=== PATIENT | male | born 1960 | race Caucasian/White ===

== ENCOUNTER 2021-04-16 17:52 | Inpatient (IN) ==
[2021-04-16] MEDS: NS 0.9% 1000 ml BAG 2,000 ML IV ONE ×2 (20:00→20:14)
[2021-04-16 20:22] LABS: ABS Lymphocytes 0.3 10^3/ul (1.0-4.8); Hematocrit 32 % (42-52); Hemoglobin 10.5 g/dL (14.0-18.0); Lymphocyte % 2.7 %; Mean Corpuscular HGB Conc 33 g/dL (31-36); Mean Corpuscular Hemoglobin 28 pg (27-31); Mean Corpuscular Volume 84 fL (80-94); Mean Platelet Volume 8.3 fL (7.4-10.4); Platelet Count 116 10^3/uL (150-450); Red Blood Count 3.77 10^6 /uL (4.18-5.48); Red Cell Distribution Width 16 % (10-15); White Blood Count 11.3 10^3/uL (3.5-10.8)
[2021-04-16 20:29] LABS: Urine Appearance Cloudy; Urine Bilirubin Negative (Negative); Urine Blood 2+ (Negative); Urine Color Yellow; Urine Glucose Negative (Negative); Urine Ketones 1+ (Negative); Urine Nitrite Negative (Negative); Urine Protein 3+(>=500 mg/dL) (Negative); Urine Urobilinogen Negative (Negative)
[2021-04-16 20:32] LABS: INR 1.99 (0.86-1.15)
[2021-04-16 20:40] LABS: Magnesium 1.7 mg/dL (1.9-2.7)
[2021-04-16 20:41] LABS: ALT 37 U/L (7-52); AST 43 U/L (13-39); Albumin 3.7 g/dL (3.2-5.2); Albumin/Globulin Ratio 1.1 (1-3); Alkaline Phosphatase 58 U/L (35-149); Anion Gap 11 mmol/L (2-11); Blood Urea Nitrogen 18 mg/dL (6-24); CO2 Carbon Dioxide 24 mmol/L (22-32); Calcium 8.7 mg/dL (8.6-10.3); Chloride 98 mmol/L (101-111); Globulin 3.5 g/dL (2-4); Glucose 195 mg/dL (70-100); Potassium 3.6 mmol/L (3.5-5.0); Sodium 133 mmol/L (135-145); Total Protein 7.2 g/dL (6.4-8.9); eGFR CKD-EPI 96.9 (>60)
[2021-04-16 20:42] LABS: Urine Bacteria 1+ (Absent); Urine Granular Casts Present (Absent); Urine Red Blood Cell 3+(>10/hpf) (Absent); Urine White Blood Cell Trace(0-5/hpf) (Absent)
[2021-04-16] MEDS ORDERED: cefTRIAXone 1 gm/50 mL NS BAG 1 GM/50 ML BAG IV ONE (20:44)
[2021-04-16 20:46] LABS: Troponin I 0.05 ng/mL (<0.03)
[2021-04-16 20:54] LABS: Urine Benzodiazepine Screen None Detected (None Detect); Urine Cannabinoids Screen None Detected (None Detect); Urine Opiates Screen None Detected (None Detect)
[2021-04-16 21:15] LABS: Alcohol, S < 13 mg/dL (<13)
[2021-04-16 21:30] LABS: TSH Ultra Thyroid Stim Horm 0.32 mcIU/mL (0.34-5.60)
[2021-04-16] MEDS ORDERED: Magnesium Sulfate IV 3 GM in NS 0.9% 100 ml BAG 100 ML IVPB ONE (22:35)
[2021-04-16] MEDS ORDERED: Potassium Chloride LIQUID 20 MEQ/15 ML LIQUID PO ONE (22:35)
[2021-04-16] MEDS ORDERED: NS 0.9% 100 ml BAG 0 ML ONE (22:40)
[2021-04-16] MEDS ORDERED: Buprenorp/Nalox 8-2 MG FILM SL FILM ONE (22:50)
[2021-04-16] MEDS ORDERED: Ondansetron 4 mg VIAL 2 MG/ML 2 ml VIAL IV PRN (22:52)
[2021-04-16] MEDS ORDERED: Magnesium Sulfate 2 GM IV (Premix) IVPB ONE (23:00)
[2021-04-16] MEDS ORDERED: Vancomycin per Pharmacy 1 EA NOTE FOLLOW UP SCH (23:00)
[2021-04-16] MEDS ORDERED: Magnesium Sulfate 1 GM IV 1 GM/100 ML BAG IV ONE (23:00)
[2021-04-16] MEDS ORDERED: NS 0.9% 500 ml BAG 500 ML ONE (23:02)
[2021-04-16] MEDS ORDERED: Dextrose 50% Syringe 50 ml 25 GM/50 ML SYRINGE IV PUSH PRN (23:04)
[2021-04-16] MEDS: Cefepime 1 GM in Dextrose 1 GM/50 ML BAG IV SCH (23:05)
[2021-04-16] MEDS ORDERED: Vancomycin 1,750 MG in NS 0.9% 500 ml BAG 500 ML IVPB ONE (23:15)
[2021-04-16 23:20] LABS: C Reactive Protein 299.21 mg/L (<8.01)
[2021-04-16] MEDS: Buprenorp/Nalox 8-2 MG SL TAB SL SCH (23:30)
[2021-04-16 23:39] LABS: Free T4 0.93 ng/dL (0.61-1.12)
[2021-04-17 00:12] LABS: Hepatitis B Surface Antigen Nonreactive (Nonreactive)
[2021-04-17 00:17] LABS: Hepatitis A Ab IgM Negative (Negative)
[2021-04-17 00:18] LABS: Hepatitis B Core IgM Nonreactive (Nonreactive)
[2021-04-17 00:29] LABS: Hepatitis C Antibody Negative (Negative)
[2021-04-17 02:00] LABS: Troponin I 0.05 ng/mL (<0.03)
[2021-04-17] MEDS: Heparin 5000 UNITS/ML 1 mL VIAL SUBCUT SCH ×3 (05:03→21:39)
[2021-04-17] MEDS: Buprenorp/Nalox 8-2 MG SL TAB SL SCH ×3 (08:04→21:41)
[2021-04-17] MEDS: Cefepime 1 GM in Dextrose 1 GM/50 ML BAG IV SCH (08:16)
[2021-04-17 09:38] LABS: ABS Lymphocytes 0.3 10^3/ul (1.0-4.8); ABS Monocytes 0.7 10^3/ul (0-0.8); ABS Neutrophils 6.7 10^3/ul (1.5-7.7); Eosinophil % 0.1 %; Hematocrit 31 % (42-52); Hemoglobin 10.2 g/dL (14.0-18.0); Lymphocyte % 3.8 %; Mean Corpuscular HGB Conc 33 g/dL (31-36); Mean Corpuscular Hemoglobin 28 pg (27-31); Mean Corpuscular Volume 84 fL (80-94); Mean Platelet Volume 8.4 fL (7.4-10.4); Platelet Count 104 10^3/uL (150-450); Red Blood Count 3.68 10^6 /uL (4.18-5.48); Red Cell Distribution Width 16 % (10-15); White Blood Count 7.7 10^3/uL (3.5-10.8)
[2021-04-17 09:44] LABS: INR 1.73 (0.86-1.15)
[2021-04-17 09:56] LABS: Albumin 3.3 g/dL (3.2-5.2); C Reactive Protein 308.52 mg/L (<8.01); Calcium 8.4 mg/dL (8.6-10.3); Direct Bilirubin 0.2 mg/dL (0.03-0.18); Globulin 3.2 g/dL (2-4); Indirect Bilirubin 0.5 mg/dL (0.3-1.0); Potassium 3.7 mmol/L (3.5-5.0); Total Bilirubin 0.7 mg/dL (0.2-1.0); Total Protein 6.5 g/dL (6.4-8.9); eGFR CKD-EPI 105.1 (>60)
[2021-04-17] MEDS ORDERED: Vancomycin 1,500 MG in NS 0.9% 250 ml 250 ML IVPB SCH (13:00)
[2021-04-17] MEDS ORDERED: Magnesium Hydroxide LIQ 30 ML UDC PO PRN (13:29)
[2021-04-17] MEDS: ceFAZolin 2 GM PREMIX 2 GM/50 ML BAG IVPB SCH ×2 (15:37→21:36)
[2021-04-17] MEDS ORDERED: NS 0.9% 1000 ml BAG 1,000 ML IV SCH (17:00)
[2021-04-17] MEDS: Senna TAB 8.6 mg TAB PO PRN (21:42)
[2021-04-18] MEDS: ceFAZolin 2 GM PREMIX 2 GM/50 ML BAG IVPB SCH ×3 (04:41→23:10)
[2021-04-18] MEDS: Heparin 5000 UNITS/ML 1 mL VIAL SUBCUT SCH ×3 (04:46→21:52)
[2021-04-18] MEDS: Buprenorp/Nalox 8-2 MG SL TAB SL SCH ×3 (08:27→21:51)
[2021-04-18 08:48] LABS: ABS Lymphocytes 0.5 10^3/ul (1.0-4.8); ABS Monocytes 0.7 10^3/ul (0-0.8); ABS Neutrophils 4.8 10^3/ul (1.5-7.7); Eosinophil % 0.6 %; Hematocrit 31 % (42-52); Hemoglobin 10.2 g/dL (14.0-18.0); Lymphocyte % 8.1 %; Mean Corpuscular HGB Conc 33 g/dL (31-36); Mean Corpuscular Hemoglobin 28 pg (27-31); Mean Corpuscular Volume 84 fL (80-94); Mean Platelet Volume 8.5 fL (7.4-10.4); Platelet Count 94 10^3/uL (150-450); Red Blood Count 3.65 10^6 /uL (4.18-5.48); Red Cell Distribution Width 16 % (10-15); White Blood Count 6.1 10^3/uL (3.5-10.8)
[2021-04-18 09:08] LABS: Calcium 8.5 mg/dL (8.6-10.3); Magnesium 1.8 mg/dL (1.9-2.7); Potassium 3.5 mmol/L (3.5-5.0)
[2021-04-18 09:55] LABS: RBC Morphology Normal (Normal)
[2021-04-18] MEDS ORDERED: Vancomycin Trough Check NOTE FOLLOW UP ONE (12:30)
[2021-04-18] MEDS ORDERED: Magnesium Sulfate IV 3 GM in NS 0.9% 100 ml BAG 100 ML IVPB ONE (13:07)
[2021-04-18 13:15] LABS: Vancomycin Trough 2.3 mcg/mL
[2021-04-18] MEDS ORDERED: Midazolam 5 mg/5 ml VIAL 1 mg/ml 5 ml VIAL (5 mg) ONE (14:01)
[2021-04-18] MEDS ORDERED: fentaNYL 100 mcg/2 ml 50 MCG/ML VIAL ONE (14:01)
[2021-04-18] MEDS ORDERED: Flumazenil 0.5 mg/5 ml 0.1 MG/ML 5 ml VIAL ONE (14:01)
[2021-04-18] MEDS ORDERED: Naloxone 0.4 mg VIAL 0.4 mg/ml 1 ml VIAL ONE (14:01)
[2021-04-18] MEDS: Magnesium Sulfate 1 GM IV 1 GM/100 ML BAG IV SCH ×3 (15:38→18:24)
[2021-04-19] MEDS: Heparin 5000 UNITS/ML 1 mL VIAL SUBCUT SCH ×3 (05:41→23:22)
[2021-04-19 05:42] LABS: INR 1.47 (0.86-1.15)
[2021-04-19] MEDS: ceFAZolin 2 GM PREMIX 2 GM/50 ML BAG IVPB SCH ×3 (05:46→23:22)
[2021-04-19 05:56] LABS: Albumin 3.3 g/dL (3.2-5.2); Albumin/Globulin Ratio 0.9 (1-3); Calcium 8.5 mg/dL (8.6-10.3); Globulin 3.5 g/dL (2-4); Magnesium 2.3 mg/dL (1.9-2.7); Potassium 3.6 mmol/L (3.5-5.0); Total Bilirubin 0.6 mg/dL (0.2-1.0); Total Protein 6.8 g/dL (6.4-8.9); eGFR CKD-EPI 101.2 (>60)
[2021-04-19 06:53] LABS: Hematocrit 30 % (42-52); Mean Corpuscular HGB Conc 33 g/dL (31-36); Mean Corpuscular Hemoglobin 28 pg (27-31); Mean Corpuscular Volume 84 fL (80-94); Mean Platelet Volume 8.7 fL (7.4-10.4); Platelet Count 102 10^3/uL (150-450); Red Blood Count 3.57 10^6 /uL (4.18-5.48); Red Cell Distribution Width 16 % (10-15); White Blood Count 5.9 10^3/uL (3.5-10.8)
[2021-04-19 08:43] LABS: RBC Morphology Normal (Normal)
[2021-04-19 08:44] LABS: ABS Eosinophils 0.1 10^3/ul (0-0.6); ABS Lymphocytes 0.9 10^3/ul (1.0-4.8); ABS Monocytes 0.8 10^3/ul (0-0.8); ABS Neutrophils 4.1 10^3/ul (1.5-7.7); Eosinophil % 2.2 %
[2021-04-19] MEDS: Buprenorp/Nalox 8-2 MG SL TAB SL SCH ×3 (09:37→23:19)
[2021-04-20] MEDS: Heparin 5000 UNITS/ML 1 mL VIAL SUBCUT SCH ×3 (04:42→20:55)
[2021-04-20] MEDS: ceFAZolin 2 GM PREMIX 2 GM/50 ML BAG IVPB SCH ×3 (05:09→22:07)
[2021-04-20 06:05] LABS: ABS Eosinophils 0.2 10^3/ul (0-0.6); ABS Lymphocytes 1.1 10^3/ul (1.0-4.8); ABS Monocytes 0.9 10^3/ul (0-0.8); ABS Neutrophils 5.5 10^3/ul (1.5-7.7); Eosinophil % 2.9 %; Hematocrit 32 % (42-52); Hemoglobin 10.4 g/dL (14.0-18.0); Lymphocyte % 13.7 %; Mean Corpuscular HGB Conc 33 g/dL (31-36); Mean Corpuscular Hemoglobin 28 pg (27-31); Mean Corpuscular Volume 84 fL (80-94); Mean Platelet Volume 8.8 fL (7.4-10.4); Platelet Count 139 10^3/uL (150-450); Red Blood Count 3.79 10^6 /uL (4.18-5.48); Red Cell Distribution Width 16 % (10-15); White Blood Count 7.7 10^3/uL (3.5-10.8)
[2021-04-20 06:14] LABS: INR 1.53 (0.86-1.15)
[2021-04-20 06:22] LABS: Calcium 8.7 mg/dL (8.6-10.3); Potassium 3.8 mmol/L (3.5-5.0); eGFR CKD-EPI 101.6 (>60)
[2021-04-20] MEDS: Buprenorp/Nalox 8-2 MG SL TAB SL SCH ×3 (09:21→20:55)
[2021-04-20] MEDS ORDERED: Lidocaine 1% VIAL 10 MG/ML VIAL ONE (11:03)
[2021-04-20] MEDS ORDERED: Bupivacaine 0.5% W/EPI SDV 10 ML VIAL INJ ONE (11:04)
[2021-04-20] MEDS ORDERED: Propofol 10 MG/ML 20 ML BTL ONE (11:05)
[2021-04-20] MEDS ORDERED: Lidocaine 2% PF 5 ML VIAL ONE (11:05)
[2021-04-20] MEDS ORDERED: Rocuronium 50 mg VIAL 10 mg/ml 5 ml VIAL (50 mg) ONE ×2 (11:05→11:59)
[2021-04-20] MEDS ORDERED: fentaNYL 250 mcg/5 ml 50 MCG/ML 5 ml VIAL (250 MCG) ONE (11:07)
[2021-04-20] MEDS ORDERED: Gentamicin ADULT 40 MG/ML VIAL (2 ML VIAL = 80 MG) ONE (11:27)
[2021-04-20] MEDS ORDERED: ceFAZolin VIAL VIAL ONE (11:27)
[2021-04-20] MEDS ORDERED: Ketamine HCL 50 mg/ml 10 ml VIAL (500 MG) ONE (11:42)
[2021-04-20] MEDS ORDERED: Ondansetron 4 mg VIAL 2 MG/ML 2 ml VIAL ONE (12:31)
[2021-04-20] MEDS ORDERED: Dexamethasone IV 4 MG/ML VIAL 1 ml VIAL ONE (12:31)
[2021-04-20] MEDS ORDERED: fentaNYL 100 mcg/2 ml 50 MCG/ML VIAL IV PRN (13:13)
[2021-04-20] MEDS ORDERED: DiMENhydriNATE IV 50 mg/ml 1 ml VIAL IV PUSH PRN (13:13)
[2021-04-20] MEDS ORDERED: Naloxone 0.4 mg VIAL 0.4 mg/ml 1 ml VIAL IV PRN (13:13)
[2021-04-20] MEDS ORDERED: Ondansetron 4 mg VIAL 2 MG/ML 2 ml VIAL IV PRN (13:13)
[2021-04-20] MEDS ORDERED: ceFAZolin 1 GM ADVAN 1 GM ADDV.VIAL IVPB ONE (13:54)
[2021-04-20] MEDS ORDERED: Lactated Ringers 1000 ml BAG 1,000 ML IV SCH (14:00)
[2021-04-21] MEDS: Heparin 5000 UNITS/ML 1 mL VIAL SUBCUT SCH (05:13)
[2021-04-21] MEDS: ceFAZolin 2 GM PREMIX 2 GM/50 ML BAG IVPB SCH ×3 (05:13→20:19)
[2021-04-21 05:39] LABS: Hematocrit 30 % (42-52); Mean Corpuscular HGB Conc 33 g/dL (31-36); Mean Corpuscular Hemoglobin 28 pg (27-31); Mean Corpuscular Volume 83 fL (80-94); Mean Platelet Volume 8.8 fL (7.4-10.4); Platelet Count 188 10^3/uL (150-450); Red Blood Count 3.62 10^6 /uL (4.18-5.48); Red Cell Distribution Width 16 % (10-15); White Blood Count 8.6 10^3/uL (3.5-10.8)
[2021-04-21 05:46] LABS: ABS Lymphocytes 0.6 10^3/ul (1.0-4.8); ABS Monocytes 0.6 10^3/ul (0-0.8); ABS Neutrophils 7.4 10^3/ul (1.5-7.7); Eosinophil % 0.1 %; Lymphocyte % 6.6 %
[2021-04-21 05:59] LABS: Albumin 3.3 g/dL (3.2-5.2); Albumin/Globulin Ratio 0.9 (1-3); C Reactive Protein 207.67 mg/L (<8.01); Calcium 8.7 mg/dL (8.6-10.3); Globulin 3.8 g/dL (2-4); Magnesium 2.1 mg/dL (1.9-2.7); Potassium 3.8 mmol/L (3.5-5.0); Total Bilirubin 0.5 mg/dL (0.2-1.0); Total Protein 7.1 g/dL (6.4-8.9); eGFR CKD-EPI 106.5 (>60)
[2021-04-21] MEDS: Buprenorp/Nalox 8-2 MG SL TAB SL SCH ×3 (08:44→20:19)
[2021-04-21] MEDS: Senna TAB 8.6 mg TAB PO PRN (08:56)
[2021-04-21] MEDS ORDERED: Enoxaparin 40 MG/0.4 ML SYR SUBCUT SCH (14:00)
[2021-04-22] MEDS: ceFAZolin 2 GM PREMIX 2 GM/50 ML BAG IVPB SCH (04:18)
[2021-04-22 04:28] LABS: Hematocrit 29 % (42-52); Hemoglobin 9.5 g/dL (14.0-18.0); Mean Corpuscular HGB Conc 33 g/dL (31-36); Mean Corpuscular Hemoglobin 28 pg (27-31); Mean Corpuscular Volume 84 fL (80-94); Mean Platelet Volume 8.4 fL (7.4-10.4); Platelet Count 236 10^3/uL (150-450); Red Blood Count 3.41 10^6 /uL (4.18-5.48); Red Cell Distribution Width 16 % (10-15); White Blood Count 8.7 10^3/uL (3.5-10.8)
[2021-04-22 04:35] LABS: ABS Eosinophils 0.1 10^3/ul (0-0.6); ABS Lymphocytes 1.5 10^3/ul (1.0-4.8); ABS Monocytes 0.8 10^3/ul (0-0.8); ABS Neutrophils 6.3 10^3/ul (1.5-7.7); Eosinophil % 0.8 %; Lymphocyte % 16.6 %
[2021-04-22 04:45] LABS: Albumin 3.2 g/dL (3.2-5.2); Albumin/Globulin Ratio 0.9 (1-3); C Reactive Protein 130.85 mg/L (<8.01); Calcium 8.5 mg/dL (8.6-10.3); Globulin 3.4 g/dL (2-4); Magnesium 1.8 mg/dL (1.9-2.7); Potassium 3.3 mmol/L (3.5-5.0); Total Bilirubin 0.5 mg/dL (0.2-1.0); Total Protein 6.6 g/dL (6.4-8.9); eGFR CKD-EPI 99.7 (>60)
[2021-04-22] MEDS ORDERED: Potassium Chloride LIQUID 20 MEQ/15 ML LIQUID PO ONE (07:05)
[2021-04-22] MEDS: Buprenorp/Nalox 8-2 MG SL TAB SL SCH (07:59)
[2021-04-22 11:17] VITALS: BP 141/65
[2021-04-22] MEDS ORDERED: DAPTOmycin SDV 500 MG in NS 0.9% 50 ML 50 ML IVPB SCH (12:00)
== END 2021-04-22 15:35 | disposition home or self-care (01) | DRG 853 ==
LOC: ED 17:52 → EDHOLD 22:54 → SUATTDRO 22:54 → MED 04-17 02:50
PROVIDERS: ADMIT Internal Medicine; ATTEND Hospitalist